=== PATIENT | female | born 1980 | race Caucasian/White ===

== ENCOUNTER 2023-01-06 20:15 | Emergency (ER) | payer MEDICAID ==
[~2023-01-06] VITALS: Ht 177.8 cm; Wt 127.3 kg
[2023-01-06 23:37] LABS: URINE HCG NEGATIVE (NEG)
[2023-01-06] MEDS ORDERED: CEPH-585 PO (23:37)
[2023-01-06 23:59] VITALS: BP 135/95
== END 2023-01-07 | disposition home or self-care (01) ==
LOC: ER 20:16
DX: L03.032 Cellulitis of left toe (principal); Z91.013 Allergy to seafood
CPT/HCPCS: 73660; 81025; 82948; 99284